=== PATIENT | female | born 1995 | race African-American/Black ===

== ENCOUNTER 2025-04-06 17:29 | Emergency (ER) | payer MEDICAID ==
[~2025-04-06] VITALS: Ht 157.5 cm; Wt 56.7 kg
[2025-04-06] MEDS ORDERED: OLANZAPINE 10 MG VIAL IM ONE (18:00)
[2025-04-06] MEDS ORDERED: LORAZEPAM INJ 2 MG/ML VIAL ONE (18:00)
[2025-04-06] MEDS: LORAZEPAM INJ 2 MG/ML VIAL IM ONE (18:15)
[2025-04-06] MEDS: OLANZAPINE 10 MG VIAL IM ONE (18:33)
[2025-04-06] MEDS: IV NS 0.9% 1,000 ML BAG IV ONE (18:34)
[2025-04-06 18:55] LABS: PLATELET COUNT (AUTO) 421 K/uL (150-450); RED BLOOD CELL COUNT(AUTO) 4.29 MIL/uL (4.0-5.2); RED CELL DISTRIBUTION WIDTH 13.8 % (11.5-15.0); WHITE BLOOD COUNT (AUTO) 21.6 K/uL (4.3-11.0)
[2025-04-06 19:08] LABS: CALCIUM, SERUM 9.5 mg/dL (8.5-10.1); CREATININE 0.8 mg/dL (0.6-1.3); SODIUM SERUM 138 mmol/L (136-145); UREA NITROGEN, BLOOD 15 mg/dL (7-18)
[2025-04-06 19:19] LABS: ALCOHOL, BLOOD < 3 mg/dL (0-10); ASPARTATE AMINOTRANSFERASE 44 U/L (15-37); TOTAL PROTEIN, SERUM 8.9 g/dL (6.4-8.2)
[2025-04-06 19:22] LABS: CREATINE KINASE, TOTAL 711 U/L (26-192)
[2025-04-06 20:29] LABS: APPEARANCE,URINE SLIGHTLY CLOUDY (CLEAR); BLOOD, URINE 2+ Ery/uL (NEGATIVE); LEUKOCYTE ESTERASE ,URINE NEGATIVE (NEGATIVE); NITRITE, URINE POSITIVE (NEGATIVE); UGLUCOSE NEGATIVE (NEGATIVE)
[2025-04-06 20:33] LABS: ADD URINE CULTURE YES
[2025-04-06 20:34] LABS: HYALINE CASTS, URINE Few /LPF (None Seen)
[2025-04-06 20:42] LABS: BARBITURATE, URINE NEGATIVE (NEGATIVE); OPIATE, URINE NEGATIVE (NEGATIVE)
[2025-04-06 20:43] LABS: AMPHETAMINE, URINE POSITIVE (NEGATIVE); BENZODIAZEPINE, URINE POSITIVE (NEGATIVE); CANNABINOID, URINE POSITIVE (NEGATIVE); COCCAINE, URINE POSITIVE (NEGATIVE)
[2025-04-06 21:39] VITALS: BP 101/60; TEMP 98; O2SAT 95
== END 2025-04-06 21:40 | disposition home or self-care (01) ==
LOC: ER 17:33 → EDBD 17:33 → ER 21:40
DX: R45.1 Restlessness and agitation (principal); F19.10 Other psychoactive substance abuse, uncomplicated; R40.0 Somnolence; R10.2 Pelvic and perineal pain; Z20.822 Contact with and (suspected) exposure to COVID-19
CPT/HCPCS: 99285; 96372; 96360; 93005; 85025; 80048; 82550; 80076; 81001; 84702; 87426; 80143; 80320; 80307; J2060; J7030; J3490; 36415; 82553; 87086-TC; G0480